=== PATIENT | female | born 1990 | race Caucasian/White ===

== ENCOUNTER 2018-11-07 07:19 | Emergency (ER) | payer MEDICARE, OTHER ==
[~2018-11-07] VITALS: Ht 175.3 cm; Wt 90.7 kg
[2018-11-07] MEDS ORDERED: PANTOPRAZOLE SO20 MG PO (07:38)
[2018-11-07] MEDS ORDERED: BUPROPION XL300 MG PO (07:38)
[2018-11-07] MEDS ORDERED: LAMOTRIGINE200 MG PO (07:38)
[2018-11-07] MEDS ORDERED: BUPROPION XL150 MG PO (07:38)
[2018-11-07] MEDS ORDERED: ALPRAZOLAM0.5 MG PO (07:39)
[2018-11-07] MEDS ORDERED: MINIPRESS1 MG PO (07:40)
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
[2018-11-07] MEDS ORDERED: ONDANSETRON ODT8 MG PO (09:48)
== END 2018-11-07 10:02 | disposition home or self-care (01) ==
LOC: EDBD 07:19 → ED 07:19
DX: E86.0 Dehydration (principal); D64.9 Anemia, unspecified; Z79.899 Other long term (current) drug therapy
CPT/HCPCS: 80053; 84703; 85025; 85379; 96360; 99284-25; J7030